=== PATIENT | female | born 1965 | race African-American/Black ===

== ENCOUNTER 2021-01-22 11:53 | Emergency (ER) | payer OTHER, SELFPAY ==
--- NOTE | ~2021-01-22 | XR_ITS ---
EXAMINATION: XR thoracic spine 2V DATE: 01/22/2021 13:12 INDICATION: Back pain. Fall. TECHNIQUE: 3 views of thoracic spine were obtained. COMPARISON: None. FINDINGS: Bone alignment is normal. Vertebral body heights are normal. Intervertebral disc heights ar e normal. There are small endplate osteophytes at multiple levels. IMPRESSION: 1. Mild thoracic spondylosis. Reviewed, dictated and finalized at location A.
--- NOTE | ~2021-01-22 | XR_ITS ---
EXAMINATION: XR_CERV2-3V_CR DATE: 01/22/2021 13:12 INDICATION: Neck pain. TECHNIQUE: 4 views of cervical spine were obtained. COMPARISON: None. FINDINGS: There is 4 degrees dextrocurvature of cervicothoracic spine. Vertebral body heights are nor mal. There is mildly decreased disc height at C3-C4 and C4-C5. At C3-C4, there is mild right uncovert ebral joint osteoarthritis. The facet joints are unremarkable. No central canal stenosis or preverteb ral soft tissue swelling. IMPRESSION: 1. Mild cervical spondylosis. Reviewed, dictated and finalized at location A.
--- NOTE | ~2021-01-22 | XR_ITS ---
EXAMINATION: XR lumbar spine 2-3V DATE: 01/22/2021 13:12 INDICATION: Back pain. Fall. TECHNIQUE: 3 views of lumbar spine were obtained. COMPARISON: None. FINDINGS: There is 3 degrees levocurvature of lumbar spine. Vertebral body heights are normal. There is mildly decreased disc height at L4-L5. There is severe facet joint osteoarthritis in lower lumbar spine. Surgical clips in the right upper quadrant are likely from cholecystectomy. IMPRESSION: 1. Mild lumbar spondylosis. Reviewed, dictated and finalized at location A. IMPRESSION: 1. Mild lumbar spondylosis.
--- NOTE | ~2021-01-22 | XR_ITS ---
EXAMINATION: XR knee LT 3V DATE: 01/22/2021 14:47 INDICATION: Left knee pain. TECHNIQUE: 4 views of left knee were obtained. COMPARISON: None. FINDINGS: Bone alignment is normal. No fracture. There is moderate osteoarthritis of lateral compartm ent and mild osteoarthritis of medial and patellofemoral compartments. There is a small knee joint ef fusion. IMPRESSION: 1. Moderate left knee osteoarthritis. 2. Small left knee joint effusion. Reviewed, dictated and finalized at location A.
[2021-01-22 11:49] VITALS: BP 154/117; PULSE 72; RESP 21; TEMP 36.8; O2SAT 100
--- NOTE | 2021-01-22 12:01 | PC.NURSE ---
Pt repeatedly states she wants to Be transferred to [facility], closer to my family. Pt states she made EMS aware of this and they told her to Tell the nurse. Pt moaning, refusing for BP reading due to It hurts too much, Im already in pain, take this thing off my arm. I want transferred closer to my family. fingerprint technician and EDP made aware.
--- NOTE | 2021-01-22 12:23 | ED.GENADULT ---
HPI - General Adult General Chief complaint: Fall Stated complaint: Fall Time Seen by Provider: 01/22/21 12:14 Source: patient History of Present Illness HPI narrative: Patient is 55 y/o female complaining of fall in the [place] a local hotel. She states that there was a bump in the [place] way and she fell face forward. She states that she was helped up by staff at the hotel. She has neck pain and back. She describes her pain as sharp and rates it as 10/10. She states that movement worsens her pain. She denies hitting head or any LOC. She also has some chest pain. She is able to move all 4 extremities. She is requesting transfer to [facility]. Related Data Allergies Allergy/AdvReac Type Severity Reaction Status Date / Time No Known Allergies Allergy Verified 01/22/21 12:42 Review of Systems Constitutional: Constitutional: Denies chills, Denies fever(s), Denies headache(s) and Denies weakness Eyes: Eyes: Denies blurry vision ENT: Denies headache(s) and Denies neck pain Cardiovascular: Cardiovascular: Reports chest pain and Denies dyspnea Respiratory: Respiratory: Denies cough and Denies dyspnea Gastrointestinal: Gastrointestinal: Denies abdominal pain, Denies diarrhea, Denies nausea and Denies vomiting Genitourinary: Genitourinary: Denies hematuria and Denies dysuria Musculoskeletal: Musculoskeletal: Reports back pain, Reports arthralgias (left knee pain) and Reports neck pain Neurologic: Denies headache(s) and Denies weakness PMFSH Social History Social History Gender identity (if verbalized by the patient): Female Exam Const: General: no acute distress and well developed Orientation/consciousness: oriented to person, oriented to place, oriented to time and patient oriented x3 HENMT: Head: normocephalic Ears: external ears normal General nose exam: Normal external nose present Eyes: General: appearance normal, both eyes and all related structures Conjunctivae: conjunctivae normal Neck: Neck: normal visual inspection and full ROM Other: c - colar in place Chest: Chest palpation & inspection: normal inspection of the chest and no tenderness Resp: Effort & Inspection: normal respiratory effort Auscultation: clear to auscultation bilaterally Cardio: Rate: regular rate Rhythm: regular rhythm GI: GI Palp: No abdominal tenderness and Yes Soft to palpation Skin: General skin exam: normal color and turgor normal Neuro: General: oriented to person, oriented to place, oriented to time and patient oriented x3 Cognition (Neuro): normal cognition Extrem: General: normal to inspection, full ROM and no pedal edema Psych: Appearance: grossly normal Mental Status: mental status grossly normal Affect: normal affect Course Consultations Consultation #1: Discussed with Dr. Rees (EDP) at [facility], who declined transfer. Date: 01/22/21 Time: 12:39 Vital Signs Vital signs: Vital Signs Temperature 36.8 C 01/22/21 11:49 Pulse Rate 72 01/22/21 11:49 Respiratory Rate 21 H 01/22/21 11:49 Blood Pressure 154/117 H 01/22/21 11:49 Pulse Oximetry 100 01/22/21 11:49 Temperature 36.8 C 01/22/21 11:49 Pulse Rate 76 01/22/21 15:35 Respiratory Rate 19 01/22/21 15:35 Blood Pressure 178/98 H 01/22/21 15:35 Pulse Oximetry 100 01/22/21 15:35 Medical Decision Making Vital Signs Vital Signs: Vital Signs Temperature 36.8 C 01/22/21 11:49 Pulse Rate 72 01/22/21 11:49 Respiratory Rate 21 H 01/22/21 11:49 Blood Pressure 154/117 H 01/22/21 11:49 Pulse Oximetry 100 01/22/21 11:49 Temperature 36.8 C 01/22/21 11:49 Pulse Rate 76 01/22/21 15:35 Respiratory Rate 19 01/22/21 15:35 Blood Pressure 178/98 H 01/22/21 15:35 Pulse Oximetry 100 01/22/21 15:35 Lab Data Result diagrams: 01/22/21 12:44 01/22/21 12:44 Labs: Lab Results 01/22/21 0
[2021-01-22] MEDS: CYCLOBENZAPRINE HCL 10 MG TABLET PO (12:45)
--- NOTE | 2021-01-22 12:45 | PC.NURSE ---
Pt to CT scan via stretcher at this time
[2021-01-22 12:51] LABS: Basophils Absolute Auto 0.1 K/mm3 (0.0-0.1); Basophils Percent Auto 0.6 % (0.2-1.2); Eosinophils Absolute Auto 0.2 K/mm3 (0-0.3); Eosinophils Percent Auto 2.7 % (0-4.4); Hematocrit 45.5 % (37.0-47.0); Immature Granulocyte Absolute 0.02 K/mm3 (0.00-0.031); Immature Granulocyte Percent A 0.2 % (0-0.5); Lymphocytes Absolute Auto 2.69 K/mm3 (0.9-3.2); Lymphocytes Percent Auto 32.6 % (18.3-44.2); Mean Corpuscular Hemoglobin 28.7 pg (26-34); Mean Corpuscular Volume 87.2 fl (80-100); Mean Platelet Volume 12.5 fl (7.4-10.4); Monocytes Absolute Auto 0.7 K/mm3 (0.1-0.6); Neutrophils Absolute Auto 4.6 K/mm3 (1.3-6.7); Neutrophils Percent Auto 55.9 % (45.5-73.1); Platelet Count Result 200 k/mm3 (150-375); Red Blood Count 5.22 M/mm3 (4.2-5.4); Red Cell Distribution Width 16.4 % (11.5-14.5); White Blood Count 8.3 K/mm3 (4.5-10.0)
--- NOTE | 2021-01-22 12:55 | PC.NURSE ---
Pt brought back from CT scan, declines at this time due to reported anxiety.
[2021-01-22 13:03] LABS: Anion Gap 3 mmol/L (8-16); Blood Urea Nitrogen 16 mg/dL (7-17); Calcium 8.9 mg/dL (8.4-10.2); Carbon Dioxide 30 mmol/L (22-30); Chloride 109 mmol/L (98-107); Estimated CRCL calculation 109 ml/min; Estimated Glomerular Filt Rate > 60; Glucose 89 mg/dL (65-105); Potassium 3.6 mmol/L (3.4-5.0); Sodium 142 mmol/L (137-145)
--- NOTE | 2021-01-22 13:44 | ECG_ITS ---
Measurements Intervals [place] Rate: 62 P: 46 LA: 175 QRS: 36 QRSD: 85 T: 72 QT: 440 QTc: 448 Interpretive Statements SINUS RHYTHM CANNOT RULE OUT SEPTAL INFARCT, AGE INDETERMINATE NONSPECIFIC T-WAVE ABNORMALITY- HIGH LATERAL LEADS ABNORMAL ECG Electronically Signed On 01-22-2021 13:58:54 CDT by Ephraim Hough D.O.
[2021-01-22 14:05] VITALS: PULSE 71; RESP 20; O2SAT 100
[2021-01-22 14:11] LABS: Troponin I < 0.012 ng/mL (0.000-0.034)
--- NOTE | 2021-01-22 14:45 | PC.NURSE ---
Pt to XRAY via stretcher. Pt requests food and drink. Given madonna mist and gary crackers.
[2021-01-22 15:35] VITALS: BP 178/98; PULSE 76; RESP 19; O2SAT 100
== END 2021-01-22 15:37 | disposition home or self-care (01) ==
PROVIDERS: Emergency Provider Emergency Medicine
DX: M54.2 Cervicalgia (principal); S39.92XA Unspecified injury of lower back, initial encounter; M25.562 Pain in left knee; R07.9 Chest pain, unspecified; M47.814 Spondylosis without myelopathy or radiculopathy, thoracic region; M47.812 Spondylosis without myelopathy or radiculopathy, cervical region; R94.31 Abnormal electrocardiogram [ECG] [EKG]; M17.12 Unilateral primary osteoarthritis, left knee; W01.0XXA Fall on same level from slipping, tripping and stumbling without subsequent striking against object, initial encounter
CPT/HCPCS: 36415; 72040; 72070; 72100; 73562; 80048; 84484; 85025; 93005; 99284; A9270